=== PATIENT | female | born 1955 | race Caucasian/White ===

== ENCOUNTER → 2016-03-22 | Outpatient (CLI) | payer OTHER ==
[~2016-03-22] MED LIST: ASPIRIN 81M81 MG/TA2 PO; ASPIRIN E.C. 8181 MG PO; CINNAMON500 MG PO; FISH OIL 1000MG1 CAP PO; FORTAMET500 MG PO; IBUPROFEN800 M1 PO; LOPID600 MG PO; MENEST0.625 MG PO; METFORMIN500 MG PO; MULTIPLE VITAMI1 CAP PO; NORCO 325 MG-7.1 TAB PO; ROXICODONE 55 MG/TAB PO; SIMVASTATIN20 MG PO; TOPROL XL 50MG50 MG PO; TYLENOL 500MG500 MG PO; TYLENOL PM EXTR1 TA1 PO
== END ==
LOC: MC.RAD 14:47
DX: Z12.31 Encounter for screening mammogram for malignant neoplasm of breast (principal)

== ENCOUNTER → 2016-06-14 | Outpatient (CLI) | payer OTHER | LOC: COL.RAD 07:30 | DX: S43.492A Other sprain of left shoulder joint, initial encounter (principal); M75.82 Other shoulder lesions, left shoulder; M19.012 Primary osteoarthritis, left shoulder ==

== ENCOUNTER 2016-08-08 06:45 | Day surgery (SDC) | payer OTHER ==
[2016-08-08] VITALS (7 sets, daily range): BP systolic 125–145; BP diastolic 61–82; PULSE 67–70; TEMP 97.6–97.9
[~2016-08-08] VITALS: Ht 162.6 cm; Wt 100.0 kg
[~2016-08-08 06:45] MED LIST changes: -ASPIRIN 81M81 MG/TA2 PO; -CINNAMON500 MG PO; -FISH OIL 1000MG1 CAP PO; -MULTIPLE VITAMI1 CAP PO; -NORCO 325 MG-7.1 TAB PO; -ROXICODONE 55 MG/TAB PO
[2016-08-08] MEDS ORDERED: MULTIPLE VITAMI1 CAP PO (08:08)
[2016-08-08] MEDS ORDERED: CINNAMON500 MG PO (08:09)
[2016-08-08] MEDS ORDERED: ASPIRIN 81M81 MG/TA2 PO (08:10)
[2016-08-08] MEDS ORDERED: FISH OIL 1000MG1 CAP PO (08:10)
[2016-08-08] MEDS ORDERED: ROXICODONE 55 MG/TAB PO (14:22)
[2016-08-08] MEDS ORDERED: NORCO 325 MG-7.1 TAB PO (14:23)
== END 2016-08-08 15:45 | disposition home or self-care (01) ==
LOC: SDCO 06:45
DX: M75.122 Complete rotator cuff tear or rupture of left shoulder, not specified as traumatic (principal); M95.8 Other specified acquired deformities of musculoskeletal system; M24.112 Other articular cartilage disorders, left shoulder; M19.90 Unspecified osteoarthritis, unspecified site; I20.9 Angina pectoris, unspecified; E11.9 Type 2 diabetes mellitus without complications; E78.00 Pure hypercholesterolemia, unspecified; Z90.711 Acquired absence of uterus with remaining cervical stump; Z85.828 Personal history of other malignant neoplasm of skin; Z82.49 Family history of ischemic heart disease and other diseases of the circulatory system; Z80.42 Family history of malignant neoplasm of prostate; Z81.8 Family history of other mental and behavioral disorders
CPT/HCPCS: C1713; J0171; J0690; J1100; J1170; J1885; J2405; J2704; J3010; J7120

== ENCOUNTER → 2016-10-16 | Outpatient (REF) ==
[~2016-10-16] MED LIST changes: +ASPIRIN 81M81 MG/TA2 PO; +CINNAMON500 MG PO; +FISH OIL 1000MG1 CAP PO; +MULTIPLE VITAMI1 CAP PO; +NORCO 325 MG-7.1 TAB PO; +ROXICODONE 55 MG/TAB PO
== END ==
LOC: WSOH 12:52 → WSPT 13:15
DX: Z02.89 Encounter for other administrative examinations (principal)

== ENCOUNTER → 2016-10-21 | Outpatient (REF) | LOC: WSOH 12:07 | DX: Z02.89 Encounter for other administrative examinations (principal) | CPT/HCPCS: G0463 ==

== ENCOUNTER → 2017-04-03 | Outpatient (CLI) | payer OTHER | LOC: MC.RAD 09:09 | DX: Z12.31 Encounter for screening mammogram for malignant neoplasm of breast (principal) ==

== ENCOUNTER → 2017-09-05 | Outpatient (CLI) | payer OTHER ==
[2017-09-05 11:19] LABS: HIV 1/2 Antibodies Non-Reactive; HIV-1p24 Antigen Non-Reactive
== END ==
LOC: COL.LAB 10:01
PROVIDERS: Orthopaedic Surgery
DX: Z01.812 Encounter for preprocedural laboratory examination (principal); M17.12 Unilateral primary osteoarthritis, left knee

== ENCOUNTER → 2017-09-17 15:00 | Inpatient (IN) | payer OTHER ==
[2017-09-16] VITALS (12 sets, daily range): BP systolic 120–187; BP diastolic 55–98; PULSE 61–81; TEMP 97.5–98
[2017-09-16 08:50] LABS: INR 1.1 (0.8-3.0); PROTHROMBIN TIME 12.3 SECONDS (9.7-12.8)
[~2017-09-17] VITALS: Ht 162.6 cm; Wt 98.2 kg
[2017-09-17 04:07] VITALS: BP 138/60; PULSE 67; TEMP 97.6
[2017-09-17 06:59] LABS: HEMATOCRIT 31.5 % (37.0-47.0); HEMOGLOBIN 10.4 g/dl (12.5-16.0)
[2017-09-17 07:07] VITALS: BP 121/60; PULSE 66; TEMP 97.8
[2017-09-17 10:58] VITALS: BP 135/57; PULSE 78; TEMP 98.2
[~2017-09-17 15:00] MED LIST changes: +FERROUS SU325 MG/TAB PO; +FOLIC ACID 40400 MCG PO; +MELATONIN5 M1 PO; +MOTRIN 600600 MG/TAB PO; +VITAMIN C500 MG PO
== END | disposition home or self-care (01) | DRG 470 ==
LOC: SDCO 07-05 07:30 → JCC 09-16 06:34 → EDSTATUS 09-16 07:30 → SDCO 09-16 07:30 → JCC 09-16 11:45
PROVIDERS: Orthopaedic Surgery
PROC: 0SRD0J9 Replacement of Left Knee Joint with Synthetic Substitute, Cemented, Open Approach (ICD-10-PCS; principal; 2017-09-16 11:45)
DX: M17.12 Unilateral primary osteoarthritis, left knee (principal); E11.9 Type 2 diabetes mellitus without complications; Z85.828 Personal history of other malignant neoplasm of skin; I10 Essential (primary) hypertension
CPT/HCPCS: A4314; A9284; C1713; C1776; J0690; J1100; J1720; J1885; J2250; J2405; J2704; J7120

== ENCOUNTER 2017-10-23 15:29 | Inpatient (IN) | payer OTHER ==
[~2017-10-23] VITALS: Ht 162.6 cm; Wt 105.0 kg
[2017-12-01] VITALS (10 sets, daily range): BP systolic 123–144; BP diastolic 56–68; PULSE 51–87; TEMP 97.8–98.3
[2017-12-02 00:02] VITALS: BP 115/56; PULSE 70; TEMP 98.1
[2017-12-02 04:33] VITALS: BP 111/46; PULSE 66; TEMP 98
[2017-12-02 07:04] LABS: HEMOGLOBIN 11.5 g/dl (12.5-16.0)
[2017-12-02 07:07] LABS: HEMATOCRIT 34.2 % (37.0-47.0)
[2017-12-02 07:15] VITALS: BP 117/54; PULSE 65; TEMP 97.6
[2017-12-02 11:00] VITALS: BP 118/42; PULSE 66; TEMP 98.5
== END 2017-12-02 14:00 | disposition home or self-care (01) | DRG 470 ==
LOC: JCC 12-01 08:43
PROVIDERS: Orthopaedic Surgery
PROC: 0SRC0J9 Replacement of Right Knee Joint with Synthetic Substitute, Cemented, Open Approach (ICD-10-PCS; principal; 2017-12-01 13:45)
DX: M17.11 Unilateral primary osteoarthritis, right knee (principal); Z23 Encounter for immunization; E11.9 Type 2 diabetes mellitus without complications; Z85.828 Personal history of other malignant neoplasm of skin; E78.5 Hyperlipidemia, unspecified
CPT/HCPCS: A4314; A4315; C1713; C1776; J0690; J1100; J1885; J2250; J2370; J2405; J2704; J7120

== ENCOUNTER → 2017-11-28 | Outpatient (CLI) | payer OTHER ==
[2017-11-28 13:47] LABS: HIV 1/2 Antibodies Non-Reactive; HIV-1p24 Antigen Non-Reactive
== END ==
LOC: COL.LAB 12:02
PROVIDERS: Orthopaedic Surgery
DX: Z01.812 Encounter for preprocedural laboratory examination (principal); M17.11 Unilateral primary osteoarthritis, right knee